=== PATIENT | female | born 1965 | race Caucasian/White ===

== ENCOUNTER 2016-03-13 23:04 | Emergency (ER) | payer OTHER ==
[2016-03-13 23:10] VITALS: TEMP 97.5
[2016-03-13] MEDS ORDERED: IPRATROPIUM-ALBUTEROL 3 ML NEB INHALATION STA (23:32)
[2016-03-13] MEDS ORDERED: SODIUM CHLORIDE 0.9% 1,000 ML IV STA (23:32)
[2016-03-13] MEDS ORDERED: methylPREDNISolone SOD SUCCI 125 MG/2 ML VIAL IV STA (23:32)
--- NOTE | 2016-03-13 23:35 | ED ---
General Adult HPI - General Chief complaint: Shortness of Breath Stated complaint: SOB Time Seen by Provider: 03/13/16 23:13 Source: patient, RN notes reviewed Mode of arrival: wheelchair Limitations: no limitations - History of Present Illness Initial comments: Patient is a 50-year-old female presenting to the emergency Department with cough and difficulty breathing. Symptoms have progressed over more than a week. Patient did have green sputum however cough is mostly dry at this time. Patient ran out of her medications. Patient states it hurts to cough all over her body. Patient states it hurts her chest and abdomen and back only from coughing. Patient has had some chills. Patient has had similar symptoms previously associated with COPD. - Related Data Home Medications Medication Instructions Recorded Confirmed Sertraline [Zoloft] 150 mg PO DAILY 07/29/13 03/13/16 Tiotropium 18 Mcg/Puff [Spiriva] 1 cap INHALATION RT-DAILY 09/27/15 03/13/16 ALPRAZolam [Xanax] 1 mg PO HS 03/13/16 03/13/16 Albuterol Inhaler [Ventolin Hfa 1 - 2 puff INHALATION RT-Q6H PRN 03/13/16 Inhaler] Levothyroxine Sodium [Synthroid] 50 mcg PO DAILY 03/13/16 03/13/16 Polyethylene Glycol 3350 [Miralax] 17 gm PO DAILY 03/13/16 03/13/16 oxyCODONE-APAP 10-325MG [Percocet 1 tab PO Q4H PRN 03/13/16 03/13/16 10-325 mg] rOPINIRole HCL [Requip] 1 mg PO HS 03/13/16 03/13/16 Previous Rx's Medication Instructions Recorded Azithromycin [Zithromax Z-pack] 250 mg PO DIRECTED #6 tab 03/14/16 predniSONE 20 mg PO BID #10 tab 03/14/16 Allergies Allergy/AdvReac Type Severity Reaction Status Date / Time ketorolac tromethamine Allergy Rash/Hives, Verified 03/13/16 23:45 [From Toradol] N/V tetanus and diphtheria Allergy Unknown Verified 03/13/16 23:45 toxoids Childhood [Tetanus&Diphtheria Toxoid] tetanus toxoid, adsorbed Allergy Unknown Verified 03/13/16 23:45 Childhood prochlorperazine edisylate AdvReac SEVERE Verified 03/13/16 23:45 [From Compazine] AGITATION prochlorperazine maleate AdvReac SEVERE Verified 03/13/16 23:45 [From Compazine] AGITATION Review of Systems ROS Statement: Those systems with pertinent positive or pertinent negative responses have been documented in the HPI. ROS Other: All systems not noted in ROS Statement are negative. Constitutional: Reports: chills Eyes: Denies: eye pain ENT: Reports: throat pain Respiratory: Reports: cough, dyspnea Cardiovascular: Reports: chest pain (Only with cough) Endocrine: Reports: fatigue Gastrointestinal: Reports: abdominal pain (Only with cough) Genitourinary: Denies: dysuria Musculoskeletal: Reports: back pain (With cough) Skin: Denies: rash Neurological: Denies: headache Past Medical History Past Medical History: Asthma, COPD, Thyroid Disorder Additional Past Medical History / Comment(s): Pt has had abdominal pain for the past few months and has been told it is appendicitis and kidney stones but not for certain. she had colonoscopy with polypectomy-benign on 07/21/15. Significant other who resides with her states she left feeling fine after colonoscopy but about 8 hrs later started with nausea and vomiting and then had increased anxiety, irradic behavior and unable to sit still. 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 They have been together for 8 yrs. She is normally independent. She uses no assistive device. She normally can drive. Significant other has noticed increased anxiety and irradic behavior the past couple days. He states pt is unable to sit still. Pt has hx of depression but denies any suicidal thoughts or plans. Significant other is concerned pt will sign out AMA or just leave. Smoking Status: Current every day smoker Past Alcohol Use History: Rare Additional Past Alcohol Use History / Comment(s): smoking: started 1986 1 ppd Past Drug Use History: None Reported - Past Family History Father Family Medical History: No Reported History Mother Family Medical History: Cancer, Diabetes Mellitus Additional Family Medical History / Comment(s): ORAL CA, HEART PROBLEMS Sister(s) Family Medical History: Fibromyalgia, Thyroid Disorder Additional Family Medical History / Comment(s): sx: to remove polyps & nodules from vocal cords..."possible cancer" General Exam Limitations: no limitations General appearance: alert, in no apparent distress Head exam: Present: atraumatic Eye exam: Present: normal appearance, PERRL ENT exam: Present: normal oropharynx Neck exam: Present: normal inspection Respiratory exam: Present: wheezes Cardiovascular Exam: Present: regular rate, normal rhythm GI/Abdominal exam: Present: soft. Absent: tenderness Extremities exam: Present: normal inspection. Absent: pedal edema, calf tenderness Back exam: Present: normal inspection Neurological exam: Present: alert Psychiatric exam: Present: normal affect, normal mood Skin exam: Absent: rash Course Vital Signs 03/13/16 03/13/16 03/13/16 23:05 23:33 23:34 Temperature 97.5 F L Pulse Rate 54 L 109 H Respiratory 24 22 Rate Blood Pressure 125/77 O2 Sat by Pulse 98 Oximetry 03/13/16 23:43 Temperature Pulse Rate 97 Respiratory Rate Blood Pressure O2 Sat by Pulse Oximetry EKG Findings - EKG Comments: EKG Findings:: Sinus tachycardia 102. [place] 162. QRS 80. QT 372. QTC 44. Normal axis. Low QRS voltage. Nonspecific T waves. Medical Decision Making - Medical Decision Making Patient reexamined and feels much better after one nebulizer treatment. Patient requests discharge home and states she has an appointment with her doctor tomorrow. Patient again requests pain medication for her cough. Patient states she normally takes pain medication twice daily. Lung sounds with rhonchi, overall significantly improved. - Lab Data Result diagrams: 03/13/16 23:40 03/13/16 23:40 Lab Results 03/13/16 03/13/16 Range/Units 23:40 23:40 WBC 7.4 (3.8-10.6) k/uL RBC 4.52 (3.80-5.40) m/uL Hgb 14.2 (11.4-16.0) gm/dL Hct 42.4 (34.0-46.0) % MCV 93.9 (80.0-100.0) fL MCH 31.5 (25.0-35.0) pg MCHC 33.5 (31.0-37.0) g/dL RDW 12.8 (11.5-15.5) % Plt Count 304 (150-450) k/uL Neutrophils % 57 % Lymphocytes % 36 % Monocytes % 5 % Eosinophils % 1 % Basophils % 1 % Neutrophils # 4.3 (1.3-7.7) k/uL Lymphocytes # 2.7 (1.0-4.8) k/uL Monocytes # 0.4 (0-1.0) k/uL Eosinophils # 0.1 (0-0.7) k/uL Basophils # 0.0 (0-0.2) k/uL Sodium 141 (137-145) mmol/L Potassium 5.4 H (3.5-5.1) mmol/L Chloride 102 (98-107) mmol/L Carbon Dioxide 25 (22-30) mmol/L Anion Gap 14 mmol/L BUN 13 (7-17) mg/dL Creatinine 0.80 (0.52-1.04) mg/dL Est GFR (MDRD) Af Amer >60 (>60 ml/min/1.73 sqM) Est GFR (MDRD) Non-Af >60 (>60 ml/min/1.73 sqM) Glucose 94 (74-99) mg/dL Calcium 9.8 (8.4-10.2) mg/dL Magnesium 1.9 (1.6-2.3) mg/dL Total Bilirubin 0.6 (0.2-1.3) mg/dL AST 42 H (14-36) U/L ALT 42 (9-52) U/L Alkaline Phosphatase 105 (38-126) U/L Total Protein 7.9 (6.3-8.2) g/dL Albumin 4.6 (3.5-5.0) g/dL - Radiology Data Interpreted by me: Chest x-ray shows no acute infiltrate. Disposition Clinical Impression: Asthmatic bronchitis Disposition: HOME SELF-CARE Condition: Stable Instructions: Asthma (ED), Acute Bronchitis (ED) Additional Instructions: Please follow-up with your doctor tomorrow as planned. Please also follow-up with your toxicologist in the next day or 2 for recheck. Return for fevers, difficulty breathing, worsening symptoms or other concerns. Prescriptions: Azithromycin [Zithromax Z-pack] 250 mg PO DIRECTED #6 tab predniSONE 20 mg PO BID #10 tab Referrals: Fermin Isaacs DO [Primary Care Provider] - 1-2 days
[2016-03-13 23:52] LABS: Basophils % (A) 1 %; CH 32.5; CHCM 34.8; Eosinophils # (A) 0.1 k/uL (0-0.7); Eosinophils % (A) 1 %; HCT 42.4 % (34.0-46.0); HDW 2.67; HGB 14.2 gm/dL (11.4-16.0); Luc # (Auto) 0.08; Luc % (Auto) 1; Lymphocytes # (A) 2.7 k/uL (1.0-4.8); Lymphocytes % (A) 36 %; MCH 31.5 pg (25.0-35.0); MCHC 33.5 g/dL (31.0-37.0); MCV 93.9 fL (80.0-100.0); Mean Platelet Volume 7.4; Monocytes # (A) 0.4 k/uL (0-1.0); Monocytes % (A) 5 %; Neutrophils # (A) 4.3 k/uL (1.3-7.7); Neutrophils % (A) 57 %; RBC 4.52 m/uL (3.80-5.40); RDW 12.8 % (11.5-15.5); WBC 7.4 k/uL (3.8-10.6); WBC (Perox) 7.77
[2016-03-14 00:03] LABS: Anion Gap 14 mmol/L; Calcium 9.8 mg/dL (8.4-10.2); Carbon Dioxide 25 mmol/L (22-30); Chloride 102 mmol/L (98-107); Glucose 94 mg/dL (74-99); Non-African American GFR(MDRD) >60 (>60 ml/min/1.73 sqM); Sodium 141 mmol/L (137-145); Total Bilirubin 0.6 mg/dL (0.2-1.3)
[2016-03-14 00:06] LABS: Blood Urea Nitrogen 13 mg/dL (7-17); Magnesium 1.9 mg/dL (1.6-2.3); Potassium 5.4 mmol/L (3.5-5.1); Total Protein 7.9 g/dL (6.3-8.2)
[2016-03-14 00:07] LABS: ALT 42 U/L (9-52); AST 42 U/L (14-36); Alkaline Phosphatase 105 U/L (38-126)
[2016-03-14] MEDS ORDERED: guaiFENesin-Coden 100-10MG/5ML 10 ML CUP PO ONE (00:18)
[2016-03-14] MEDS ORDERED: AZITHROMYCIN 500 MG TAB PO STA (00:19)
[2016-03-14 00:24] VITALS: BP 102/71; PULSE 96; RESP 18
--- NOTE | 2016-03-14 01:32 | XR ---
EXAMINATION TYPE: XR chest 2V DATE OF EXAM: 03/14/2016 12:01 AM COMPARISON: March 02, 2015. HISTORY: History of congestion shortness of breath and chest pain cough history of asthma. TECHNIQUE: Frontal and lateral views of the chest are obtained. FINDINGS: Chronic lung changes are suggested bilaterally. There is no focal air space opacity, pleural effusion, or pneumothorax seen. The cardiac silhouette size is within normal limits. The osseous structures are intact. IMPRESSION: No acute cardiopulmonary process. No significant interval change.
== END 2016-03-14 00:41 | disposition home or self-care (01) ==
LOC: EC 23:04
DX: J45.909 Unspecified asthma, uncomplicated (principal); J44.9 Chronic obstructive pulmonary disease, unspecified; E07.9 Disorder of thyroid, unspecified; F41.9 Anxiety disorder, unspecified; F32.9 Major depressive disorder, single episode, unspecified; F17.200 Nicotine dependence, unspecified, uncomplicated; Z88.7 Allergy status to serum and vaccine; Z88.8 Allergy status to other drugs, medicaments and biological substances; Z79.899 Other long term (current) drug therapy
CPT/HCPCS: 99285; 96374; 96361; 36415; 94640; 93005; 80053; 83735; 85025; 87040; 71020; J2930

== ENCOUNTER 2016-04-07 20:56 | Emergency (ER) | payer OTHER ==
[2016-04-07 21:05] VITALS: TEMP 97.7
[2016-04-07] MEDS ORDERED: SODIUM CHLORIDE 0.9% 500 ML IV STA (21:46)
[2016-04-07] MEDS ORDERED: HYDROmorphone 1 MG/ML 1 ML SYRINGE IVP STA (21:46)
[2016-04-07] MEDS ORDERED: SODIUM CHLORIDE 0.9% 1,000 ML IV STA (21:46)
--- NOTE | 2016-04-07 21:51 | ED ---
General Adult HPI - General Chief complaint: Abdominal Pain Stated complaint: ABD pain Time Seen by Provider: 04/07/16 21:34 Source: patient, family, EMS, RN notes reviewed, old records reviewed Mode of arrival: EMS Limitations: no limitations - History of Present Illness Initial comments: Chief complaint and history of present illness this is a 50-year-old female with acute onset of right lower quadrant pain. No nausea no vomiting. EMS gave her fluids, Zofran and fentanyl. Patient reports didn't help. Pain started acutely approximately one hour prior to coming emergency room. - Related Data Home Medications Medication Instructions Recorded Confirmed Sertraline [Zoloft] 150 mg PO DAILY 07/29/13 03/13/16 Tiotropium 18 Mcg/Puff [Spiriva] 1 cap INHALATION RT-DAILY 09/27/15 03/13/16 ALPRAZolam [Xanax] 1 mg PO HS 03/13/16 03/13/16 Albuterol Inhaler [Ventolin Hfa 1 - 2 puff INHALATION RT-Q6H PRN 03/13/16 Inhaler] Levothyroxine Sodium [Synthroid] 50 mcg PO DAILY 03/13/16 03/13/16 Polyethylene Glycol 3350 [Miralax] 17 gm PO DAILY 03/13/16 03/13/16 oxyCODONE-APAP 10-325MG [Percocet 1 tab PO Q4H PRN 03/13/16 03/13/16 10-325 mg] rOPINIRole HCL [Requip] 1 mg PO HS 03/13/16 03/13/16 Previous Rx's Medication Instructions Recorded Azithromycin [Zithromax Z-pack] 250 mg PO DIRECTED #6 tab 03/14/16 predniSONE 20 mg PO BID #10 tab 03/14/16 Allergies Allergy/AdvReac Type Severity Reaction Status Date / Time ketorolac tromethamine Allergy Rash/Hives, Verified 03/13/16 23:45 [From Toradol] N/V tetanus and diphtheria Allergy Unknown Verified 03/13/16 23:45 toxoids Childhood [Tetanus&Diphtheria Toxoid] tetanus toxoid, adsorbed Allergy Unknown Verified 03/13/16 23:45 Childhood prochlorperazine edisylate AdvReac SEVERE Verified 03/13/16 23:45 [From Compazine] AGITATION prochlorperazine maleate AdvReac SEVERE Verified 03/13/16 23:45 [From Compazine] AGITATION Review of Systems ROS Statement: Those systems with pertinent positive or pertinent negative responses have been documented in the HPI. Review of systems no complaint of visual acuity changes no headache no chest pain. She has discomfort to the right lower quadrant area. Reports her urine is dark she does have a past history of kidney stones. No flank pain. No nausea no vomiting. No change in bowel habits no change in color of stool. All systems are reviewed. Past medical problems kidney stones, asthma, COPD, hypothyroidism, chronic abdominal pain. Patient surgeries include partial hysterectomy, agitation right great toe after a lawnmower incident. Also colonoscopy. Family history mother has mouth cancer. Patient has ALLERGIES to ketorolac, tetanus, Compazine. ROS Other: All systems not noted in ROS Statement are negative. Past Medical History Past Medical History: Asthma, COPD, Thyroid Disorder Additional Past Medical History / Comment(s): Pt has had abdominal pain for the past few months and has been told it is appendicitis and kidney stones but not for certain. she had colonoscopy with polypectomy-benign on 07/21/15. Significant other who resides with her states she left feeling fine after colonoscopy but about 8 hrs later started with nausea and vomiting and then had increased anxiety, irradic behavior and unable to sit still. 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 They have been together for 8 yrs. She is normally independent. She uses no assistive device. She normally can drive. Significant other has noticed increased anxiety and irradic behavior the past couple days. He states pt is unable to sit still. Pt has hx of depression but denies any suicidal thoughts or plans. Significant other is concerned pt will sign out AMA or just leave. Smoking Status: Current every day smoker Past Alcohol Use History: Rare Additional Past Alcohol Use History / Comment(s): smoking: started 1985 1 ppd Past Drug Use History: None Reported - Past Family History Father Family Medical History: No Reported History Mother Family Medical History: Cancer, Diabetes Mellitus Additional Family Medical History / Comment(s): ORAL CA, HEART PROBLEMS Sister(s) Family Medical History: Fibromyalgia, Thyroid Disorder Additional Family Medical History / Comment(s): sx: to remove polyps & nodules from vocal cords..."possible cancer" General Exam - General Exam Comments Initial Comments: General: The patient is awake and alert, complaining of acute onset of right lower quadrant pain. Denying nausea. Vital signs temp 97.7 pulse 114 respiratory rate 22 pulse ox on percent room air blood pressure 86/55. Patient is not diaphoretic. Eye: Pupils are equal, round and reactive to light, extra-ocular movements are intact ; there is normal conjunctiva bilaterally. No signs of icterus. Ears, nose, mouth and throat: There are moist mucous membranes and no oral lesions. Patient is edentulous. Neck: The neck is supple, there is no tenderness . Cardiovascular: There is a regular rate and rhythm. No murmur, rub or gallop is appreciated. Respiratory: Lungs are clear to auscultation, respirations are non-labored, breath sounds are equal. No wheezes, stridor, rales, or rhonchi. Gastrointestinal: Soft, non-distended, points to the right lower quadrant area discomfort.. There is no rebound or guarding present. No CVA tenderness. Bowel sounds are unremarkable. No rash noted Back: There is no tenderness to palpation in the midline. There is no obvious deformity. No rashes noted. Musculoskeletal: Normal ROM, no tenderness, There is no pedal edema. There is no calf tenderness or swelling. Sensation intact. Neurological: No neuro deficits Skin: Skin is warm and dry and no rashes or lesions are noted. Psychiatric: Cooperative, appropriate mood & affect, normal judgment. History of anxiety and depression in the past. Limitations: no limitations Course Vital Signs 04/07/16 04/07/16 04/07/16 21:02 21:56 22:52 Temperature 97.7 F Pulse Rate 114 H 75 84 Respiratory 22 18 18 Rate Blood Pressure 86/55 97/53 107/55 O2 Sat by Pulse 100 97 99 Oximetry Medical Decision Making - Medical Decision Making Medical decision making; patient's white count 4.1 hemoglobin 13 hematocrit of 38, potassium 4.8 with a BUN of 15 crit and 0.9 and GFR greater than 60. Glucose 91. Amylase lipase within normal limits. X-ray of the abdomen was done and reviewed by radiologist his findings are there is no sign of intestinal obstruction or pneumoperitoneum. Fecal pattern is normal. There is no evidence of a mass. There are no pathologic calcifications over the kidneys. There is a mild lumbar dextroscoliosis. Lung bases are clear. Impression; nonacute abdomen. No change. As read by Dr. Serrano She was given a molasses and milk enema with excellent results. The patient's family now saying admission has been accomplished. Wants to go home, feeling better. - Lab Data Result diagrams: 04/07/16 21:14 04/07/16 21:14 Lab Results 04/07/16 04/07/16 04/07/16 Range/Units 21:14 21:14 21:14 WBC 4.1 (3.8-10.6) k/uL RBC 4.11 (3.80-5.40) m/uL Hgb 13.0 (11.4-16.0) gm/dL Hct 38.6 (34.0-46.0) % MCV 93.8 (80.0-100.0) fL MCH 31.6 (25.0-35.0) pg MCHC 33.7 (31.0-37.0) g/dL RDW 12.9 (11.5-15.5) % Plt Count 226 (150-450) k/uL Neutrophils % 50 % Lymphocytes % 43 % Monocytes % 4 % Eosinophils % 1 % Basophils % 1 % Neutrophils # 2.0 (1.3-7.7) k/uL Lymphocytes # 1.7 (1.0-4.8) k/uL Monocytes # 0.2 (0-1.0) k/uL Eosinophils # 0.0 (0-0.7) k/uL Basophils # 0.0 (0-0.2) k/uL Sodium 141 (137-145) mmol/L Potassium 4.8 (3.5-5.1) mmol/L Chloride 106 (98-107) mmol/L Carbon Dioxide 27 (22-30) mmol/L Anion Gap 8 mmol/L BUN 15 (7-17) mg/dL Creatinine 0.90 (0.52-1.04) mg/dL Est GFR (MDRD) Af Amer >60 (>60 ml/min/1.73 sqM) Est GFR (MDRD) Non-Af >60 (>60 ml/min/1.73 sqM) Glucose 94 (74-99) mg/dL Plasma Lactic Acid David 0.7 (0.7-2.0) mmol/L Calcium 9.0 (8.4-10.2) mg/dL Total Bilirubin 0.3 (0.2-1.3) mg/dL AST 17 (14-36) U/L ALT 24 (9-52) U/L Alkaline Phosphatase 91 (38-126) U/L Total Protein 6.7 (6.3-8.2) g/dL Albumin 3.9 (3.5-5.0) g/dL Amylase 63 (30-110) U/L Lipase 184 (23-300) U/L Urine Color Urine Appearance (Clear) Urine pH (5.0-8.0) Ur Specific [place] (1.001-1.035) Urine Protein (Negative) Urine Glucose (UA) (Negative) Urine Ketones (Negative) Urine Blood (Negative) Urine Nitrate (Negative) Urine Bilirubin (Negative) Urine Urobilinogen (<2.0) mg/dL Ur Leukocyte Esterase (Negative) 04/07/16 Range/Units 22:52 WBC (3.8-10.6) k/uL RBC (3.80-5.40) m/uL Hgb (11.4-16.0) gm/dL Hct (34.0-46.0) % MCV (80.0-100.0) fL MCH (25.0-35.0) pg MCHC (31.0-37.0) g/dL RDW (11.5-15.5) % Plt Count (150-450) k/uL Neutrophils % % Lymphocytes % % Monocytes % % Eosinophils % % Basophils % % Neutrophils # (1.3-7.7) k/uL Lymphocytes # (1.0-4.8) k/uL Monocytes # (0-1.0) k/uL Eosinophils # (0-0.7) k/uL Basophils # (0-0.2) k/uL Sodium (137-145) mmol/L Potassium (3.5-5.1) mmol/L Chloride (98-107) mmol/L Carbon Dioxide (22-30) mmol/L Anion Gap mmol/L BUN (7-17) mg/dL Creatinine (0.52-1.04) mg/dL Est GFR (MDRD) Af Amer (>60 ml/min/1.73 sqM) Est GFR (MDRD) Non-Af (>60 ml/min/1.73 sqM) Glucose (74-99) mg/dL Plasma Lactic Acid David (0.7-2.0) mmol/L Calcium (8.4-10.2) mg/dL Total Bilirubin (0.2-1.3) mg/dL AST (14-36) U/L ALT (9-52) U/L Alkaline Phosphatase (38-126) U/L Total Protein (6.3-8.2) g/dL Albumin (3.5-5.0) g/dL Amylase (30-110) U/L Lipase (23-300) U/L Urine Color Yellow Urine Appearance Clear (Clear) Urine pH 7.0 (5.0-8.0) Ur Specific [place] 1.015 (1.001-1.035) Urine Protein Negative (Negative) Urine Glucose (UA) Negative (Negative) Urine Ketones Negative (Negative) Urine Blood Negative (Negative) Urine Nitrate Negative (Negative) Urine Bilirubin Negative (Negative) Urine Urobilinogen <2.0 (<2.0) mg/dL Ur Leukocyte Esterase Negative (Negative) Disposition Clinical Impression: Constipation, Abdominal pain Disposition: HOME SELF-CARE Condition: Good Instructions: Abdominal Pain (ED), Constipation (ED) Additional Instructions: Stay well-hydrated. Use laxative as needed. Follow-up family physician. Time of Disposition: 23:55
[2016-04-07 21:57] VITALS: RESP 18
[2016-04-07 22:08] LABS: Basophils % (A) 1 %; CH 32.7; Eosinophils % (A) 1 %; HCT 38.6 % (34.0-46.0); Luc # (Auto) 0.08; Luc % (Auto) 2; Lymphocytes # (A) 1.7 k/uL (1.0-4.8); Lymphocytes % (A) 43 %; MCH 31.6 pg (25.0-35.0); MCHC 33.7 g/dL (31.0-37.0); MCV 93.8 fL (80.0-100.0); Mean Platelet Volume 7.6; Monocytes # (A) 0.2 k/uL (0-1.0); Monocytes % (A) 4 %; Neutrophils % (A) 50 %; RBC 4.11 m/uL (3.80-5.40); RDW 12.9 % (11.5-15.5); WBC 4.1 k/uL (3.8-10.6); WBC (Perox) 3.97
[2016-04-07 22:17] LABS: ALT 24 U/L (9-52); AST 17 U/L (14-36); Alkaline Phosphatase 91 U/L (38-126); Amylase 63 U/L (30-110); Anion Gap 8 mmol/L; Blood Urea Nitrogen 15 mg/dL (7-17); Carbon Dioxide 27 mmol/L (22-30); Chloride 106 mmol/L (98-107); Glucose 94 mg/dL (74-99); Non-African American GFR(MDRD) >60 (>60 ml/min/1.73 sqM); Potassium 4.8 mmol/L (3.5-5.1); Sodium 141 mmol/L (137-145); Total Bilirubin 0.3 mg/dL (0.2-1.3); Total Protein 6.7 g/dL (6.3-8.2)
--- NOTE | 2016-04-07 22:25 | XR ---
EXAMINATION TYPE: XR abdomen 2V DATE OF EXAM: 04/07/2016 10:09 PM COMPARISON: 07/14/2015 HISTORY: Right upper quadrant pain TECHNIQUE: 4 views FINDINGS: There is no sign of intestinal obstruction or pneumoperitoneum. Fecal pattern is normal. Th ere is no evidence of a mass. There are no pathologic calcifications over the kidneys. There is a mil d lumbar dextroscoliosis. Lung bases are clear. IMPRESSION: Nonacute abdomen. No change.
[2016-04-07 22:53] VITALS: PULSE 84
[2016-04-07 23:06] LABS: Appearance,Urine Clear (Clear); Bilirubin,Urine Negative (Negative); Glucose,Urine (UA) Negative (Negative); Ketones,Urine Negative (Negative); Leukocyte Esterase,Urine Negative (Negative); Nitrite,Urine Negative (Negative); Protein,Urine Negative (Negative); Specific Gravity,Urine 1.015 (1.001-1.035); UA Billing (MACRO vs. MICRO) CHEM; Urobilinogen,Urine <2.0 mg/dL (<2.0)
[2016-04-08 00:14] VITALS: BP 100/70
== END 2016-04-08 00:14 | disposition home or self-care (01) ==
LOC: EC 20:56
DX: K59.00 Constipation, unspecified (principal); J44.9 Chronic obstructive pulmonary disease, unspecified; J45.909 Unspecified asthma, uncomplicated; G25.81 Restless legs syndrome; E03.9 Hypothyroidism, unspecified; F41.9 Anxiety disorder, unspecified; F32.9 Major depressive disorder, single episode, unspecified; F17.200 Nicotine dependence, unspecified, uncomplicated; Z87.442 Personal history of urinary calculi; Z79.899 Other long term (current) drug therapy; Z88.5 Allergy status to narcotic agent; Z88.7 Allergy status to serum and vaccine
CPT/HCPCS: 99284; 96374; 96361 ×2; 36415; 80053; 82150; 83605; 83690; 85025; 81003; 87086; 74020; J1170

== ENCOUNTER → 2016-09-30 | Outpatient (CLI) | payer OTHER ==
--- NOTE | 2016-09-30 19:40 | MR ---
EXAMINATION TYPE: MR lumbar spine wo con DATE OF EXAM: 09/30/2016 COMPARISON: CT abdomen and pelvis September 27, 2015 HISTORY: Back Pain since 2004, Pain and Numbness down both Legs TECHNIQUE: Multiplanar, multisequence imaging of the lumbar spine is performed without IV contrast. FINDINGS: Sagittal images of the lumbar spine show vertebral body heights to remain satisfactory. The re is slight dextroconvex scoliotic curvature centered near thoracolumbar junction redemonstrated. Mu ltilevel disc desiccation is noted. There is moderate to advanced disc space narrowing with vacuum di sc phenomenon L4-L5 and L5-S1 levels redemonstrated. Small posterior disc herniation L5-S1 level as s een on sagittal images. The conus medullaris is normal in position and signal ending at mid L1 level. Mild spurring and endplate changes in the lower lumbar spine is present. Axial images show the T12-L1 level to appear within normal limits. Axial images at L1-L2 level show mild broad disc bulge mildly effacing anterior thecal sac, bilateral neural foramina are patent. Axial images at L2-L3 level are felt within normal limits. Axial images at L3-L4 level show mild facet degenerative changes bilaterally but spinal canal is pres erved and bilateral neural foramina are patent. Axial images at L4-L5 level show mild to moderate facet degenerative changes bilaterally. There is br oad-based posterior disc protrusion. There is mild to moderate right and mild left-sided anterior inf erior neural foraminal narrowing noted. Spinal canal is preserved. Axial images at L5-S1 level show mild to moderate facet degenerative changes bilaterally. There is ce ntral disc protrusion seen. Spinal canal is preserved. There is mild to moderate bilateral anterior i nferior neural foraminal narrowing noted. IMPRESSION: Slight scoliotic curvature with multilevel degenerative changes redemonstrated most prono unced in lower lumbar levels with further details noted as discussed in body of report.
== END | disposition home or self-care (01) ==
LOC: RADMRIMAIN 18:30
PROVIDERS: ATTEND Internal Medicine
DX: M47.817 Spondylosis without myelopathy or radiculopathy, lumbosacral region (principal); M41.86 Other forms of scoliosis, lumbar region
CPT/HCPCS: 72148

== ENCOUNTER → 2016-11-19 | Outpatient (CLI) | payer OTHER ==
--- NOTE | 2016-11-19 15:05 | P.HPIM ---
History of Present Illness H&P Date: 11/19/16 Chief Complaint: low back pain and leg pain This is a 51-year-old patient referred by Dr. Isaacs for chronic pain in low back with numbness/tingling in both legs. Patient has been taking medications from primary care physician including [place] and Xanax medications with some relief; patient has a history of cocaine use and states that she has been " clean 7 years". She was previously taking opioids but states that she does not want any more. Patient denies adverse drug effects from medications. Patient also denies new-onset weakness, bowel/bladder incontinence, or any other signs or symptoms of cauda equina syndrome. There are no signs of acute intoxication, and no indications of medication diversion or overuse. Patient notes that pain worsens significantly with bending over and improves with standing up straight, ice, rest, and medication. Patient has used several types of medications for pain, including NSAIDS, OPIOIDS, and BENZODIAZEPINES. Patient HAS NOT had surgery. Patient HAS NOT had injections previously. Patient HAS NOT had physical therapy recently. In addition to above, 13-point review of systems is also negative for chest pain , shortness of breath, changes in vision, changes in hearing, new onset weakness , abdominal pain, diarrhea, extreme fatigue, malaise, fever, skin changes, homicidal or suicidal ideation, or bowel or bladder incontinence. Vital Signs: Reviewed in EMR Gen: WDWN, AAOx3, NAD HEENT: NCAT, EOMI, hearing grossly normal Pulm: resp unlabored Abd: soft, NT, ND Neck: supple, trachea midline ROM in flexion lumbar spine: reduced ROM in extension lumbar spine: reduced Lumbar paravertebral tenderness: + Facet loading: + L side SI joint tenderness: + L side, neg R side Tristan's test: + L side Straight leg raise: + bilateral Neuro: CN II-XII grossly intact, muscle strength lower extremities PRESERVED Past Medical History Past Medical History: Asthma, COPD, Thyroid Disorder Additional Past Medical History / Comment(s): Pt has had abdominal pain for the past few months and has been told it is appendicitis and kidney stones but not for certain. she had colonoscopy with polypectomy-benign on 07/21/15. Significant other who resides with her states she left feeling fine after colonoscopy but about 8 hrs later started with nausea and vomiting and then had increased anxiety, irradic behavior and unable to sit still. 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 They have been together for 8 yrs. She is normally independent. She uses no assistive device. She normally can drive. Significant other has noticed increased anxiety and irradic behavior the past couple days. He states pt is unable to sit still. Pt has hx of depression but denies any suicidal thoughts or plans. Significant other is concerned pt will sign out AMA or just leave. Smoking Status: Current every day smoker Past Alcohol Use History: Rare Additional Past Alcohol Use History / Comment(s): smoking: started 1985 03 ppd Past Drug Use History: None Reported - Past Family History Father Family Medical History: No Reported History Mother Family Medical History: Cancer, Diabetes Mellitus Additional Family Medical History / Comment(s): ORAL CA, HEART PROBLEMS Sister(s) Family Medical History: Fibromyalgia, Thyroid Disorder Additional Family Medical History / Comment(s): sx: to remove polyps & nodules from vocal cords..."possible cancer" Medications and Allergies Home Medications Medication Instructions Recorded Confirmed Type Sertraline [Zoloft] 150 mg PO DAILY 07/29/13 03/13/16 History Tiotropium 18 Mcg/Puff [Spiriva] 1 cap INHALATION RT-DAILY 09/27/15 03/13/16 History ALPRAZolam [Xanax] 1 mg PO HS 03/13/16 03/13/16 History Albuterol Inhaler [Ventolin Hfa 1 - 2 puff INHALATION RT-Q6H PRN 03/13/16 History Inhaler] Levothyroxine Sodium [Synthroid] 50 mcg PO DAILY 03/13/16 03/13/16 History Polyethylene Glycol 3350 [Miralax] 17 gm PO DAILY 03/13/16 03/13/16 History oxyCODONE-APAP 10-325MG [Percocet 1 tab PO Q4H PRN 03/13/16 03/13/16 History 10-325 mg] rOPINIRole HCL [Requip] 1 mg PO HS 03/13/16 03/13/16 History Azithromycin [Zithromax Z-pack] 250 mg PO DIRECTED #6 tab 03/14/16 Rx predniSONE 20 mg PO BID #10 tab 03/14/16 Rx Allergies Allergy/AdvReac Type Severity Reaction Status Date / Time ketorolac tromethamine Allergy Rash/Hives, Verified 03/13/16 23:45 [From Toradol] N/V tetanus and diphtheria Allergy Unknown Verified 03/13/16 23:45 toxoids Childhood [Tetanus&Diphtheria Toxoid] tetanus toxoid, adsorbed Allergy Unknown Verified 03/13/16 23:45 Childhood prochlorperazine edisylate AdvReac SEVERE Verified 03/13/16 23:45 [From Compazine] AGITATION prochlorperazine maleate AdvReac SEVERE Verified 03/13/16 23:45 [From Compazine] AGITATION Results Comments: MRI lumbar spine dated 09/30/2016 demonstrates mild facet degenerative changes bilaterally at the L3-L4 level with patent bilateral neural foramina. At the L4 -L5 level there are mild to moderate facet degenerative changes bilaterally with a broad-based posterior disc protrusion and mild to moderate right and mild left-sided inferior neural foraminal narrowing. At the L5-S1 level there are mild to moderate facet degenerative changes bilaterally with central disc protrusion seen. There is mild to moderate bilateral inferior neural foraminal narrowing noted. Assessment and Plan (1) Lumbar spondylosis Status: Chronic (2) Chronic pain syndrome Status: Chronic (3) History of cocaine abuse Status: Resolved Plan: 1. Explanation: Opioid and psychological risk scores were reviewed. Diagnoses , prognoses, and multiple treatment options including but not limited to physical therapy, interventional therapies, adjuvant medical therapies, narcotic medication therapies, and surgery were discussed with the patient and all questions were answered to the patient's satisfaction. 2. Opioid agreement: no opioids prescribed today 3. Counseling: The patient was counseled extensively on SMOKING CESSATION, BODY MASS INDEX, EXERCISE. Specifically, the patient was instructed regarding the importance of smoking cessation, weight control, and exercise in the context of both chronic pain and overall health. 4. Procedures: will discuss FRANKYIs next visit 5. Consultations: physical therapy, dietetics 6. Investigations: none 7. Medications: none prescribed 8. Disposition: f/u for re-eval in 8 weeks after physical therapy to discuss LESIs if needed. Patient told to reduce to 17 cigarettes per day by next visit. PQRS measures: 1-Patient's medications are documented in the chart. 2-Tobacco use is positive, counseling given 3-Patient has not had a pneumococcal vaccine. 4-Advanced care planning discussed, patient unable to give. 5-Opioid contract signed with the patient. 6-Pain positive, follow-up visit or procedure scheduled 7-Patient's blood pressure measured and documented, and patient will follow up with the primary care due to hypertension. 8-Patient's weight was measured, and body mass index ABOVE the normal limits, and counseling was done. Patient instructed to follow up with PCP. 9-Patient WAS NOT identified as an unhealthy alcohol user. Time with Patient: Greater than 30
== END | disposition home or self-care (01) ==
LOC: PNWHC3 14:05
PROVIDERS: ATTEND Anesthesiology
DX: M47.816 Spondylosis without myelopathy or radiculopathy, lumbar region (principal); G89.4 Chronic pain syndrome; J44.9 Chronic obstructive pulmonary disease, unspecified; F17.200 Nicotine dependence, unspecified, uncomplicated; Z86.59 Personal history of other mental and behavioral disorders; Z79.899 Other long term (current) drug therapy; Z79.51 Long term (current) use of inhaled steroids; Z88.6 Allergy status to analgesic agent; Z88.7 Allergy status to serum and vaccine; Z88.8 Allergy status to other drugs, medicaments and biological substances
CPT/HCPCS: 99211

== ENCOUNTER 2016-12-15 16:45 | Emergency (ER) | payer OTHER ==
[2016-12-15 16:59] VITALS: RESP 18
[2016-12-15] MEDS ORDERED: HYDROmorphone 1 MG/ML 1 ML SYRINGE IM STA (17:13)
[2016-12-15] MEDS ORDERED: ORPHENADRINE 30 MG/ML 2 ML VIAL IM STA (17:13)
--- NOTE | 2016-12-15 17:19 | ED ---
Back Pain HPI - General Chief Complaint: Back Pain/Injury Stated Complaint: Back Pain Time Seen by Provider: 12/15/16 17:01 Source: patient, RN notes reviewed, old records reviewed Limitations: no limitations - History of Present Illness Initial Comments: Patient is a 51 year old female with CC of back pain after a fall from her one porch step last night. Patient reports that she missed the step and tabatha her back. She denies falling directly on her tailbone. Patient states that she is currently under a pain contract with Dr. Millard. She reports that she takes Percocet. She reports that she took 2 of them but is not helping with her pain. Patient states that she has a known history of chronic back pain. She has an MRI which she brought the report with her stating that she's had multiple degenerative disc disease. Patient denies any saddle anesthesias. She reports that she has had no problems with urination or bowel movements. She states that she has no blood in her urine or dysuria, denies any abdominal pain. She denies any pain radiating down her legs. She reports it only stays in her lumbar and lower thoracic spine. - Related Data Home Medications Medication Instructions Recorded Confirmed Sertraline [Zoloft] 150 mg PO DAILY 07/29/13 12/15/16 Tiotropium 18 Mcg/Puff [Spiriva] 1 cap INHALATION RT-DAILY 09/27/15 12/15/16 Polyethylene Glycol 3350 [Miralax] 17 gm PO DAILY 03/13/16 12/15/16 ALPRAZolam [Xanax] 0.25 mg PO HS 12/15/16 12/15/16 Albuterol Nebulized [Ventolin 2.5 mg INHALATION RT-QID PRN 12/15/16 12/15/16 Nebulized] Levothyroxine Sodium [Synthroid] 25 mcg PO DAILY 12/15/16 12/15/16 oxyCODONE-APAP 5-325MG [Percocet 1 tab PO DAILY PRN 12/15/16 12/15/16 5-325 mg] rOPINIRole HCL [Requip] 3 mg PO HS 12/15/16 12/15/16 Previous Rx's Medication Instructions Recorded Cyclobenzaprine [Flexeril] 10 mg PO TID #15 tab 12/15/16 Allergies Allergy/AdvReac Type Severity Reaction Status Date / Time ketorolac tromethamine Allergy Rash/Hives, Verified 12/15/16 17:17 [From Toradol] N/V tetanus and diphtheria Allergy Unknown Verified 12/15/16 17:17 toxoids Childhood [Tetanus&Diphtheria Toxoid] tetanus toxoid, adsorbed Allergy Unknown Verified 12/15/16 17:17 Childhood prochlorperazine edisylate AdvReac SEVERE Verified 12/15/16 17:17 [From Compazine] AGITATION prochlorperazine maleate AdvReac SEVERE Verified 12/15/16 17:17 [From Compazine] AGITATION Review of Systems ROS Statement: Those systems with pertinent positive or pertinent negative responses have been documented in the HPI. ROS Other: All systems not noted in ROS Statement are negative. Past Medical History Past Medical History: Asthma, COPD, Thyroid Disorder Additional Past Medical History / Comment(s): Pt has had abdominal pain for the past few months and has been told it is appendicitis and kidney stones but not for certain. she had colonoscopy with polypectomy-benign on 07/21/15. Significant other who resides with her states she left feeling fine after colonoscopy but about 8 hrs later started with nausea and vomiting and then had increased anxiety, irradic behavior and unable to sit still. 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-MULT SURGERIES; adhesions from hysterectomy removed Past Anesthesia/Blood Transfusion Reactions: No Reported Reaction Past Psychological History: Anxiety, Bipolar, Depression Smoking Status: Current every day smoker Past Alcohol Use History: None Reported Past Drug Use History: None Reported - Past Family History Father Family Medical History: No Reported History Mother Family Medical History: Cancer, Diabetes Mellitus Additional Family Medical History / Comment(s): ORAL CA, HEART PROBLEMS Sister(s) Family Medical History: Fibromyalgia, Thyroid Disorder Additional Family Medical History / Comment(s): sx: to remove polyps & nodules from vocal cords..."possible cancer" General Exam - General Exam Comments Initial Comments: Pleasant 51 year old female, no distress. Limitations: no limitations General appearance: alert, in no apparent distress Head exam: Present: atraumatic, normocephalic, normal inspection Eye exam: Present: normal appearance, PERRL, EOMI. Absent: scleral icterus, conjunctival injection, periorbital swelling ENT exam: Present: normal exam, mucous membranes moist Neck exam: Present: normal inspection. Absent: tenderness, meningismus, lymphadenopathy Respiratory exam: Present: normal lung sounds bilaterally. Absent: respiratory distress, wheezes, rales, rhonchi, stridor Cardiovascular Exam: Present: regular rate, normal rhythm, normal heart sounds. Absent: systolic murmur, diastolic murmur, rubs, gallop, clicks GI/Abdominal exam: Present: soft, normal bowel sounds. Absent: distended, tenderness, guarding, rebound, rigid Extremities exam: Present: normal inspection, full ROM, normal capillary refill. Absent: tenderness, pedal edema, joint swelling, calf tenderness Back exam: Present: normal inspection, vertebral tenderness (lumbar vertebral tenderness ) Neurological exam: Present: alert, oriented X3, CN II-XII intact Psychiatric exam: Present: normal affect, normal mood Skin exam: Present: warm, dry, intact, normal color. Absent: rash Course Vital Signs 12/15/16 16:55 Temperature 97.9 F Pulse Rate 95 Respiratory 18 Rate Blood Pressure 103/58 O2 Sat by Pulse 94 L Oximetry Medical Decision Making - Medical Decision Making Is a 51-year-old female with acute exacerbation of chronic back pain after she tabatha her back after she missed a step and fell. Patient has some lumbar spinal tenderness. No saddle anesthesias. Full range of motion noted and legs. Patient is neurovascularly intact. Patient received lumbar spine x-rays and was given IM pain medication. As patient is a already on a pain contract discussed that I will not write her for any further pain medicine. Her spine x- rays were obtained. There is no significant findings including fracture. There is some spondylosis of the lumbar spine specifically L4-L5 and L5-S1. Patient received pain medicines and is feeling better at this time. Again I will write the patient only for also relaxers that she is on a pain contract. She does have a primary care provider per appointment tomorrow. Patient agrees to treatment plan will comply. Return parameters were discussed. - Radiology Data Radiology results: report reviewed X-ray shows a normal thoracic spine exam. X-ray of lumbar spine shows spondylosis and lumbar spine. No evidence of fracture. Narrowing of disc spaces L4-L5 and L5-S1. Disposition Clinical Impression: Acute exacerbation of chronic low back pain, Lumbar paraspinal muscle spasm Disposition: HOME SELF-CARE Condition: Good Instructions: Acute Low Back Pain (ED) Additional Instructions: Patient advised to follow-up with her primary care tomorrow. Patient should return if there is any signs of loss of bowel or bladder control. Return to emergency department if any alarming signs or symptoms occur. Prescriptions: Cyclobenzaprine [Flexeril] 10 mg PO TID #15 tab Referrals: Lyle Islas MD [Primary Care Provider] - 1-2 days Time of Disposition: 18:20
--- NOTE | 2016-12-15 18:09 | XR ---
EXAMINATION TYPE: XR lumbar spine 2 or 3V DATE OF EXAM: 12/15/2016 COMPARISON: NONE HISTORY: Back pain TECHNIQUE: 3 views FINDINGS: Vertebra have fairly normal alignment. There is narrowing of disc spaces at L4-5 and L5-S1 with spurring of the endplates. Posterior elements are intact. Sacroiliac joints appear normal. IMPRESSION: Spondylosis in the lower lumbar spine. No fracture.
--- NOTE | 2016-12-15 18:10 | XR ---
EXAMINATION TYPE: XR thoracic spine 2V DATE OF EXAM: 12/15/2016 COMPARISON: NONE HISTORY: Back pain TECHNIQUE: 3 views FINDINGS: Vertebra have normal spacing and alignment. Posterior elements are intact. There is no para spinal mass. There is no compression fracture. IMPRESSION: Normal thoracic spine exam.
[2016-12-15 18:46] VITALS: BP 137/68; PULSE 92; TEMP 97.7
== END 2016-12-15 18:30 | disposition home or self-care (01) ==
LOC: EC 16:45
DX: M62.830 Muscle spasm of back (principal); G89.29 Other chronic pain; M47.816 Spondylosis without myelopathy or radiculopathy, lumbar region; J44.9 Chronic obstructive pulmonary disease, unspecified; J45.909 Unspecified asthma, uncomplicated; E03.9 Hypothyroidism, unspecified; F41.9 Anxiety disorder, unspecified; F31.9 Bipolar disorder, unspecified; F17.200 Nicotine dependence, unspecified, uncomplicated; Z79.899 Other long term (current) drug therapy; Z88.6 Allergy status to analgesic agent; Z88.7 Allergy status to serum and vaccine; Z88.8 Allergy status to other drugs, medicaments and biological substances; W10.8XXA Fall (on) (from) other stairs and steps, initial encounter
CPT/HCPCS: 99284 ×2; 96372 ×3; 72070; 72100; J2360; J1170

== ENCOUNTER 2017-03-19 10:52 | Emergency (ER) | payer OTHER ==
[2017-03-19] MEDS ORDERED: IBUPROFEN 800 MG TAB PO STA (11:16)
--- NOTE | 2017-03-19 11:23 | ED ---
General Adult HPI - General Chief complaint: Fall Stated complaint: SLIP ON ICE, ABDOMINAL PAIN Time Seen by Provider: 03/19/17 11:02 Source: patient, RN notes reviewed, old records reviewed Mode of arrival: ambulatory Limitations: no limitations - History of Present Illness Initial comments: 51-year-old female presents for evaluation of left lower abdominal pain and pain with ambulation status post slip and fall. Patient reports yesterday afternoon she tripped on the ice, fell blood cultures herself before hitting the ground. She had initial mild lower abdominal pain and pain worse with sitting up. This is worsened over the past 12 hours. Patient denies dysuria or hematuria. Denies any change in her bowels. No nausea vomiting. No upper abdominal pain. No chest pain or shortness of breath. Patient did not strike any part of her body on the ground. She has no extremity pain. No head or neck pain. No loss consciousness. Patient has pain only in her left lower quadrant which is worse with sitting up, worse with ambulation. - Related Data Home Medications Medication Instructions Recorded Confirmed Polyethylene Glycol 3350 [Miralax] 17 gm PO DAILY 03/13/16 03/19/17 Albuterol Nebulized [Ventolin 2.5 mg INHALATION RT-QID PRN 12/15/16 03/19/17 Nebulized] Levothyroxine Sodium [Synthroid] 25 mcg PO DAILY 12/15/16 03/19/17 Hydrocodone/Acetaminophen [[place] 1 tab PO QID 03/19/17 03/19/17 7.5-325] Previous Rx's Medication Instructions Recorded Divalproex ER [Depakote ER] 1,000 mg PO HS #60 tab.er.24h 02/10/17 QUEtiapine [SEROquel] 50 mg PO HS #30 tab 02/10/17 rOPINIRole HCL [Requip] 1 mg PO HS tab 02/10/17 Ibuprofen [Motrin] 600 mg PO Q8HR PRN #24 tab 03/19/17 Allergies Allergy/AdvReac Type Severity Reaction Status Date / Time ketorolac tromethamine Allergy Rash/Hives, Verified 03/19/17 11:22 [From Toradol] N/V tetanus and diphtheria Allergy Unknown Verified 03/19/17 11:22 toxoids Childhood [Tetanus&Diphtheria Toxoid] tetanus toxoid, adsorbed Allergy Unknown Verified 03/19/17 11:22 Childhood prochlorperazine edisylate AdvReac SEVERE Verified 03/19/17 11:22 [From Compazine] AGITATION prochlorperazine maleate AdvReac SEVERE Verified 03/19/17 11:22 [From Compazine] AGITATION Review of Systems ROS Statement: Those systems with pertinent positive or pertinent negative responses have been documented in the HPI. ROS Other: All systems not noted in ROS Statement are negative. 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-MULT SURGERIES; adhesions from hysterectomy removed Past Anesthesia/Blood Transfusion Reactions: No Reported Reaction Past Psychological History: Anxiety, Bipolar, Depression Smoking Status: Current every day smoker Past Alcohol Use History: None Reported Past Drug Use History: None Reported - Past Family History Father Family Medical History: No Reported History Mother Family Medical History: Cancer, Diabetes Mellitus Additional Family Medical History / Comment(s): ORAL CA, HEART PROBLEMS Sister(s) Family Medical History: Fibromyalgia, Thyroid Disorder Additional Family Medical History / Comment(s): sx: to remove polyps & nodules from vocal cords..."possible cancer" General Exam Limitations: no limitations General appearance: alert, in no apparent distress Head exam: Present: atraumatic, normocephalic Eye exam: Present: normal appearance, PERRL ENT exam: Present: normal exam Neck exam: Present: normal inspection. Absent: tenderness, meningismus Respiratory exam: Present: normal lung sounds bilaterally. Absent: respiratory distress, wheezes Cardiovascular Exam: Present: regular rate, normal rhythm GI/Abdominal exam: Present: soft, tenderness (mild tenderness in the left lower quadrant, pain significantly worse with sitting forward, consistent with abdominal wall strain), normal bowel sounds. Absent: distended Extremities exam: Present: normal inspection, full ROM, normal capillary refill , calf tenderness, other (abdominal pain with flexion of the left lower extremity at the hip. distal pulses intact. ). Absent: tenderness, pedal edema Back exam: Present: normal inspection. Absent: full ROM, tenderness Neurological exam: Present: alert, oriented X3, CN II-XII intact. Absent: motor sensory deficit Psychiatric exam: Present: normal affect, normal mood Skin exam: Present: warm, dry, intact Course Vital Signs 03/19/17 10:59 Temperature 98.1 F Pulse Rate 90 Respiratory 20 Rate Blood Pressure 114/66 O2 Sat by Pulse 98 Oximetry Medical Decision Making - Medical Decision Making 51-year-old female with left lower quadrant abdominal pain status post fall. Pain consistent with abdominal wall muscle strain, patient does have some mild pain in her lower abdomen with internal and external rotation of the hip. Lower extremities are normal no injury. No external signs trauma. No head or neck trauma. X-rays of the hip are obtained, these are negative for any acute bony abnormality, no fracture or dislocation. Patient will rest, she will gently stretch her abdominal wall muscles. Take Motrin as an anti-inflammatory. Disposition Clinical Impression: Abdominal wall strain Disposition: HOME SELF-CARE Condition: Good Instructions: Muscle Strain (ED), Core Strengthening Exercises (ED) Prescriptions: Ibuprofen [Motrin] 600 mg PO Q8HR PRN #24 tab PRN Reason: Pain Referrals: Esvin Valentin MD [Primary Care Provider] - 1-2 days Time of Disposition: 11:48
--- NOTE | 2017-03-19 11:38 | XR ---
EXAMINATION TYPE: XR Hip Complete LT DATE OF EXAM: 03/19/2017 CLINICAL HISTORY: pain TECHNIQUE: AP and frogleg views of the left hip are obtained. COMPARISON: None. FINDINGS: There is no acute fracture/dislocation evident. The joint space appears within normal li mits. The overlying soft tissue appears unremarkable. IMPRESSION: 1. There is no acute fracture or dislocation.ICD 10 NO FRACTURE, INITIAL EVALUATION
[2017-03-19 12:18] VITALS: BP 118/62; PULSE 79; RESP 16; TEMP 97.6
== END 2017-03-19 12:17 | disposition home or self-care (01) ==
LOC: EC 10:52
DX: S39.011A Strain of muscle, fascia and tendon of abdomen, initial encounter (principal); E03.9 Hypothyroidism, unspecified; F17.200 Nicotine dependence, unspecified, uncomplicated; Z79.891 Long term (current) use of opiate analgesic; Z79.899 Other long term (current) drug therapy; Z88.7 Allergy status to serum and vaccine; Z88.6 Allergy status to analgesic agent; Z88.8 Allergy status to other drugs, medicaments and biological substances; W00.0XXA Fall on same level due to ice and snow, initial encounter; Y92.009 Unspecified place in unspecified non-institutional (private) residence as the place of occurrence of the external cause
CPT/HCPCS: 73502; 99284

== ENCOUNTER 2018-01-13 10:19 | Emergency (ER) | payer OTHER ==
[2018-01-13 10:23] VITALS: BP 96/64; TEMP 98.3
[2018-01-13] MEDS ORDERED: methylPREDNISolone SOD SUCCI 125 MG/2 ML VIAL IV STA (10:46)
[2018-01-13] MEDS ORDERED: guaiFENesin SYRUP 100MG/5ML 200 MG/10 ML CUP PO STA (10:46)
[2018-01-13] MEDS ORDERED: IPRATROPIUM-ALBUTEROL 3 ML NEB INHALATION STA (10:46)
--- NOTE | 2018-01-13 10:55 | XR ---
EXAMINATION TYPE: XR chest 2V DATE OF EXAM: 01/13/2018 COMPARISON: 03/14/2016 INDICATION: Cough, pain TECHNIQUE: Frontal and lateral views of the chest are obtained. FINDINGS: The heart size is normal. The pulmonary vasculature is normal. Some mild left perihilar infiltrate is present. Lungs are otherwise clear. IMPRESSION: 1. Mild left perihilar infiltrate. Correlate for developing pneumonia and bronchitis. Viral pneumonia could be considered.
[2018-01-13 11:00] VITALS: RESP 16
[2018-01-13] MEDS ORDERED: methylPREDNISolone SOD SUCCI 125 MG/2 ML VIAL IM ONE (11:02)
[2018-01-13] MEDS ORDERED: LEVOFLOXACIN 500 MG TAB PO STA (11:10)
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
[2018-01-13 11:36] VITALS: PULSE 84
== END 2018-01-13 11:35 | disposition home or self-care (01) ==
LOC: EC 10:19
DX: J44.0 Chronic obstructive pulmonary disease with (acute) lower respiratory infection (principal); J18.9 Pneumonia, unspecified organism; E03.9 Hypothyroidism, unspecified; M54.9 Dorsalgia, unspecified; Z99.89 Dependence on other enabling machines and devices; F31.9 Bipolar disorder, unspecified; F41.9 Anxiety disorder, unspecified; F17.200 Nicotine dependence, unspecified, uncomplicated; Z79.891 Long term (current) use of opiate analgesic; Z79.899 Other long term (current) drug therapy; Z88.6 Allergy status to analgesic agent; Z88.7 Allergy status to serum and vaccine; Z88.8 Allergy status to other drugs, medicaments and biological substances; Z53.8 Procedure and treatment not carried out for other reasons
CPT/HCPCS: 94640; 71046; 99284; 96372; J2930

== ENCOUNTER 2021-01-04 15:29 | Emergency (ER) | payer OTHER ==
[2021-01-04 15:36] VITALS: TEMP 97.8
[2021-01-04] MEDS ORDERED: ACETAMINOPHEN TAB 500 MG TAB PO STA (16:19)
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
--- NOTE | 2021-01-04 16:39 | XR ---
EXAMINATION TYPE: XR finger RT DATE OF EXAM: 01/04/2021 COMPARISON: NONE HISTORY: Fourth finger injury with pain. TECHNIQUE: 3 views right fourth finger. FINDINGS: No acute displaced fracture is evident in the right fourth finger. Lateral view slightly [place] boptimal due to osseous overlap. Mild to moderate narrowing in the PIP and DIP joints. No significant spurring. Overlying soft tissue is unremarkable. IMPRESSION: As above.
--- NOTE | 2021-01-04 16:40 | XR ---
EXAMINATION TYPE: XR ribs LT w pa chest xray DATE OF EXAM: 01/04/2021 CLINICAL HISTORY: History of asthma with shortness of breath and cough. Congestion. TECHNIQUE: Single frontal view of the chest is obtained. COMPARISON: Chest x-ray January 13, 2018 FINDINGS: There is no suspicious focal air space opacity, pleural effusion, or pneumothorax seen cur rently. The cardiac silhouette size is stable and within normal limits. The osseous structures are intact. IMPRESSION: No acute pulmonary process.
[2021-01-04 17:12] VITALS: BP 108/72; PULSE 101; RESP 16
== END 2021-01-04 17:23 | disposition home or self-care (01) ==
LOC: EC 15:29
DX: R07.81 Pleurodynia (principal); M79.644 Pain in right finger(s); J44.9 Chronic obstructive pulmonary disease, unspecified; F17.200 Nicotine dependence, unspecified, uncomplicated; E03.9 Hypothyroidism, unspecified; Z79.890 Hormone replacement therapy; Z88.7 Allergy status to serum and vaccine; Z88.8 Allergy status to other drugs, medicaments and biological substances; Z88.6 Allergy status to analgesic agent; W50.0XXA Accidental hit or strike by another person, initial encounter; Y92.009 Unspecified place in unspecified non-institutional (private) residence as the place of occurrence of the external cause
CPT/HCPCS: 99283

== ENCOUNTER → 2022-05-23 | Outpatient (CLI) | payer OTHER ==
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
== END | disposition home or self-care (01) ==
LOC: RADXRMAIN 14:43
PROVIDERS: ATTEND Family Medicine
DX: R06.02 Shortness of breath (principal)
CPT/HCPCS: 71046

== ENCOUNTER 2024-04-10 16:46 | Emergency (ER) | payer OTHER ==
[2024-04-10 16:57] VITALS: BP 96/60; PULSE 85; RESP 20; TEMP 97.7
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
[2024-04-10] MEDS: ORPHENADRINE 30 MG/ML 2 ML VIAL IM STA (17:35)
[2024-04-10] MEDS: CYCLOBENZAPRINE 10MG STARTER 3 TAB BTL PO STA (17:36)
== END 2024-04-10 17:41 | disposition home or self-care (01) ==
LOC: EC 16:46
DX: S46.912A Strain of unspecified muscle, fascia and tendon at shoulder and upper arm level, left arm, initial encounter (principal); F17.200 Nicotine dependence, unspecified, uncomplicated; Z88.7 Allergy status to serum and vaccine; Z88.8 Allergy status to other drugs, medicaments and biological substances; V49.40XA Driver injured in collision with unspecified motor vehicles in traffic accident, initial encounter
CPT/HCPCS: 99283; 96372; J2360

== ENCOUNTER → 2024-05-17 | Outpatient (CLI) | payer OTHER ==
[2024-05-17 12:29] VITALS: BP 109/76; PULSE 84; RESP 19; TEMP 97.6
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
== END ==
LOC: PNWHC3 11:39
PROVIDERS: ATTEND Specialist
DX: M54.12 Radiculopathy, cervical region (principal); F17.210 Nicotine dependence, cigarettes, uncomplicated; Z88.6 Allergy status to analgesic agent; Z88.7 Allergy status to serum and vaccine; Z88.3 Allergy status to other anti-infective agents; Z88.1 Allergy status to other antibiotic agents
CPT/HCPCS: 99212

== ENCOUNTER → 2024-06-09 | Outpatient (CLI) | payer OTHER ==
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
== END | disposition home or self-care (01) ==
LOC: RADMRIMAIN 17:54
PROVIDERS: ATTEND Specialist
DX: M67.814 Other specified disorders of tendon, left shoulder (principal); M75.112 Incomplete rotator cuff tear or rupture of left shoulder, not specified as traumatic; M43.12 Spondylolisthesis, cervical region; M47.22 Other spondylosis with radiculopathy, cervical region; M50.11 Cervical disc disorder with radiculopathy, high cervical region; M19.012 Primary osteoarthritis, left shoulder
CPT/HCPCS: 72141

== ENCOUNTER → 2024-06-28 | Outpatient (CLI) | payer OTHER ==
[2024-06-28 12:51] VITALS: BP 126/82; PULSE 86; RESP 15; TEMP 98.4
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
== END ==
LOC: PNWHC3 12:20
PROVIDERS: ATTEND Specialist
DX: S43.492A Other sprain of left shoulder joint, initial encounter (principal); M43.12 Spondylolisthesis, cervical region; F17.200 Nicotine dependence, unspecified, uncomplicated; Z88.6 Allergy status to analgesic agent; Z88.7 Allergy status to serum and vaccine; Z88.8 Allergy status to other drugs, medicaments and biological substances
CPT/HCPCS: 99212

== ENCOUNTER 2024-07-16 10:14 | Day surgery (SDC) | payer OTHER ==
[2024-07-13 15:17] VITALS: BMI 31.7
[~2024-07-16 10:14] MED LIST: LACTATED RINGERS 1,000 ML IV SCH
[2024-07-16 11:08] VITALS: RESP 16; TEMP 97.2
[2024-07-16] MEDS ORDERED: IOPAMIDOL M200 10 ML VIAL ONE (12:05)
[2024-07-16] MEDS ORDERED: DEXAMETHASONE SOD PHOSPHATE 10 MG/ML 1 ML VIAL ONE (12:05)
--- NOTE | 2024-07-16 12:21 | P.PCN ---
Date of Procedure: 07/16/24 Procedure(s) Performed: PREOPERATIVE DIAGNOSIS: 1-cervical radiculopathy . 2-cervical foraminal stenosis. 3-cervical spondylolisthesis POSTOPERATIVE DIAGNOSIS: Same as preop diagnosis PROCEDURE 1. Transforaminal epidural steroid injection under fluoroscopic guidance at left C5-6 level. (Fluoroscopy images stored on file in the radiology Department ) 2. Cervical epidurogram . ANESTHESIA: Local with 1% lidocaine 3 ml. EBL: Minimal PROCEDURE INDICATION: The patient with low back pain and radiculopathy symptoms unresponsive to conservative treatment. PROCEDURE DESCRIPTION / TECHNIQUE: The patient was seen and identified in the preoperative area. Risks, benefits, complications, and alternatives were discussed with the patient. The patient agreed to proceed with the procedure and signed the consent., and vital signs were stable. Patient was taken to the OR and time out was completed. The patient was placed in the lateral position on procedure table left side up. The cervical area was prepped and draped in the usual sterile fashion. Critical pause was taken. Vital signs were closely monitored during the procedure. Using oblique fluoroscopy, the foramina of left C5-6 level was identified, and the skin and deeper tissues just below was localized with 1% lidocaine. Subsequently, a 23-gauge 3.5-inch spinal needle was advanced under a tunneled view fluoroscopic guidance just in the lower part of C5-6 foraminal under lateral fluoroscopy, the needle was then advanced to the posterior border of the interforaminal space. After negative aspiration of CSF and blood and with no paresthesias, 1 mL Isovue 200 contrast dye was injected excellent epidurogram and outlining of the nerve root Subsequently, 1.5 mL of block solution containing 15 mg Dexamethasone PF was injected. Needle was removed . At the end of the procedure, skin was cleansed, and bandages were applied. COMPLICATIONS:none DISPOSITION / PLANS: The patient was placed in a supine position and transferred to the recovery area in a stable condition for observation. There was no evidence of lower extremity motor or sensory deficit after the procedure. Patient was discharged from the recovery room after meeting discharge criteria. Home discharge instructions were given to the patient by the staff. The patient was reexamined prior to discharge.
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
[2024-07-16 12:39] VITALS: BP 128/74; PULSE 84
== END 2024-07-16 12:52 | disposition home or self-care (01) ==
LOC: ORPAIN 10:14
PROVIDERS: ATTEND Specialist
DX: M48.02 Spinal stenosis, cervical region (principal); M43.12 Spondylolisthesis, cervical region; M54.12 Radiculopathy, cervical region; Z88.6 Allergy status to analgesic agent; Z88.7 Allergy status to serum and vaccine
CPT/HCPCS: 64479; J1100; Q9966

== ENCOUNTER → 2024-09-02 | Outpatient (CLI) | payer OTHER ==
[2024-09-02 15:08] LABS: Basophils # (A) 0.03 X 10*3/uL (0.00-0.10); Basophils % (A) 0.7 %; Eosinophils # (A) 0.05 X 10*3/uL (0.04-0.35); Eosinophils % (A) 1.1 %; HCT 39.7 % (37.2-46.3); Immature Grans, Automated 0 %; Lymphocytes # (A) 1.39 X 10*3/uL (0.90-5.00); Lymphocytes % (A) 31.6 %; MCH 31.3 pg (27.0-32.0); MCHC 32.7 g/dL (32.0-37.0); MCV 95.4 FL (80.0-97.0); Mean Platelet Volume 10.3 FL (9.5-12.2); Monocytes # (A) 0.26 X 10*3/uL (0.20-1.00); Monocytes % (A) 5.9 %; NRBC Per 100 WBC 0 X 10*3/uL (0.00-0.01); Neutrophils # (A) 2.67 X 10*3/uL (1.80-7.70); Neutrophils % (A) 60.7 %; Platelet Count 313 X 10*3/uL (140-440); RBC 4.16 X 10*6/uL (4.10-5.20); RDW 12.4 % (11.5-14.5)
[2024-09-02 15:17] LABS: Anion Gap 13.6 mmol/L (4.00-12.00); Carbon Dioxide 22.4 mmol/L (21.6-31.8); Potassium 4.4 mmol/L (3.5-5.5)
== END | disposition home or self-care (01) ==
LOC: LABPAT 11:10
PROVIDERS: ATTEND Orthopaedic Surgery
DX: Z01.818 Encounter for other preprocedural examination (principal); M75.42 Impingement syndrome of left shoulder; R94.31 Abnormal electrocardiogram [ECG] [EKG]
CPT/HCPCS: 80051; 85025; 93005

== ENCOUNTER 2024-09-08 07:37 | Day surgery (SDC) | payer OTHER ==
[2024-09-06 10:54] VITALS: BMI 31.7
--- NOTE | 2024-09-07 21:00 | HP ---
HISTORY AND PHYSICAL Surgery scheduled for 09/08/2024. HISTORY OF PRESENT ILLNESS: Amparo Rendon is a 59-year-old patient seen with progressive left shoulder pain. We discussed options regarding treatment. She elected to proceed with left shoulder arthroscopy. Consent was obtained. PAST MEDICAL HISTORY: Hypothyroidism and asthma. PAST SURGICAL HISTORY: Hysterectomy and foot surgery. DAILY MEDICATIONS: 1. Hydrocodone. 2. Levothyroxine. 3. Morphine. 4. Xanax. ALLERGIES: Compazine, tetanus, and Toradol. SOCIAL HISTORY: She denies tobacco use. PHYSICAL EVALUATION OF THE LEFT SHOULDER: Flexion is 90 degrees. Abduction is 90 degrees. External rotation is 30 degrees with significant weakness and pain. Tenderness along the anterolateral acromion, acromioclavicular joint, rotator cuff tendon along the biceps tendon. Impingement positive at 90 degrees. Cross-body adduction sign is positive. Distal neurovascular exam intact. IMAGING STUDIES: Radiographs of shoulder revealed a type 2 acromion, acromioclavicular joint osteoarthritis. Left shoulder MRI revealed partial rotator cuff tendon tear. IMPRESSION: 1. Left shoulder impingement with partial rotator cuff tear. 2. Left shoulder labral tear. 3. Left shoulder acromioclavicular joint osteoarthritis. PLAN: Left shoulder arthroscopy with subacromial decompression, arthroscopic rotator cuff repair, Estuardo procedure and debridement of labral tear. MMODL / IJN: [id number] /
[~2024-09-08 07:37] MED LIST changes: -LACTATED RINGERS 1,000 ML IV SCH; +SCOPOLAMINE 1 MG/72 HR PATCH TRANSDERM ONE; +TRANEXAMIC 1,000 MG/100ML-NACL 1,000 MG in SALINE 1 100ML.BAG IVPB PRN
[2024-09-08] MEDS: IV FLUID CONTINUATION 1,000 ML IV ONE ×2 (07:55→13:04)
[2024-09-08] MEDS: ACETAMINOPHEN TAB 500 MG TAB PO PRN (08:32)
[2024-09-08] MEDS: ONDANSETRON 4 MG/2 ML VIAL IVP ONE (08:32)
[2024-09-08] MEDS: MELOXICAM 7.5 MG TAB PO PRN (08:32)
[2024-09-08] MEDS: DEXAMETHASONE SOD PHOSPHATE 4 MG/ML 1 ML VIAL IV ONE (08:33)
[2024-09-08] MEDS: LACTATED RINGERS 1,000 ML IV SCH (08:46)
[2024-09-08] MEDS: MIDAZOLAM 2 MG/2 ML VIAL IV PRN (08:54)
--- NOTE | 2024-09-08 09:07 | P.ANPRN ---
Procedure Note - Anesthesia - Nerve Block Performed Left Interscalene Single Time Out Performed: Yes Date of Procedure: 09/08/24 Procedure Start Time: 08:54 Procedure Stop Time: 08:59 Location of Patient: PreOp Indication: Acute Post-Operative Pain, Analgesia, Requested by Surgeon Sedation Type: Sedate with meaningful contact maintained Preparation: Sterile Prep Position: Sitting Catheter: None Needle Types: Pajunk Needle Gauge: 21 Ultrasound used to visualize needle placement: Yes Ultrasound used to observe medication spread: Yes Injectate: 0.5% Ropivacaine (see comment for volume) ([id number]. Negative nerve stimulation @0.5MA) Blood Aspirated: No Pain Paresthesia on Injection Noted: No Resistance on Injection: Normal Image Stored and Saved: Yes Events: Uneventful and Well Tolerated
[2024-09-08] MEDS ORDERED: DEXAMETHASONE SOD PHOSPHATE 4 MG/ML 1 ML VIAL ONE (09:50)
[2024-09-08] MEDS ORDERED: ROPIVACAINE 5 MG/ML 30 ML VIAL ONE (09:50)
[2024-09-08] MEDS ORDERED: LIDOCAINE 1% INJ 10MG/ML (20 ML MDV) ONE (09:50)
[2024-09-08] MEDS ORDERED: GLYCOPYRROLATE 0.2 MG/ML 2 ML VIAL ONE (09:50)
[2024-09-08] MEDS ORDERED: SUCCINYLCHOLINE CHLORIDE 200 MG/10 ML VIAL IV ONE (09:50)
[2024-09-08] MEDS ORDERED: PROPOFOL 10 MG/ML 20 ML VIAL IV ONE (09:50)
[2024-09-08] MEDS ORDERED: ROCURONIUM 10 MG/ML (5 ML VIAL) IV ONE (09:50)
[2024-09-08] MEDS ORDERED: NEOSTIGMINE 1 MG/ML 10 ML VIAL ONE (09:50)
--- NOTE | 2024-09-08 11:41 | P.OP ---
Date of Procedure: 09/08/24 Preoperative Diagnosis: Left shoulder impingement Postoperative Diagnosis: 1. Left shoulder rotator cuff tear 2. Left shoulder impingement 3. Left shoulder partial long head biceps tendon tear 4. Left shoulder superficial labral tear Procedure(s) Performed: 1. Left shoulder arthroscopic rotator cuff repair 2. Left shoulder arthroscopic subacromial decompression 3. Left shoulder arthroscopic biceps tenodesis 4. Left shoulder arthroscopic debridement superficial labral tear Implants: 1Arthrex 4.75 swivel lock anchor Anesthesia: GETA, regional (Interscalene block) Surgeon: Andrew Swan Spa Director/Finance #1: Amor Brooks Estimated Blood Loss (ml): 10 Pathology: none sent Condition: stable Disposition: PACU Indications for Procedure: 59-year-old patient seen with progressive left shoulder pain. After having rafaela atment options discussed, she elected to proceed with arthroscopy. Operative Findings: See description of procedure Description of Procedure: Patient underwent an interscalene block by department of anesthesia. The patient was then taken to the operative suite. The patient underwent a general anesthetic by the department of anesthesia. The patient was placed into a lateral position and secured. There was appropriate padding of the bony prominence. Left shoulder was then prepped and draped in normal sterile orthopedic fashion. We placed the extremity in 10 pounds of longitudinal traction. A posterior incision was now made for a posterior working portal site. The trocar and cannula were inserted into the glenohumeral joint. Arthroscopy was initiated. Spinal needle was now inserted anteriorly, to ascertain the anterior working portal site. An incision was now made in that area, a trocar was inserted followed by a probe. There was superficial tearing of the anterior labrum. There were some grade I chondromalacia changes of the glenoid. There was partial tearing and hyperemia long head biceps tendon. I introduced a motorized shaver and debrided the superficial labral tear. I now placed a cannula through the anterior portal site. I passed a loop and tack stitch to the biceps tendon and then release it from the superior labral anchor. With the assistance of Joce earl at the interval. The suture line was not passed through the eyelet of an Arthrex 4.75 swivel lock anchor. I placed the eyelet into our prepunched hole. I held in position while Joce NDIAYE tensioned the suture and deployed the anchor with good fixation noted. The residual suture line was clipped. We had a stable biceps tenodesis. The residual labrum was probed and was found to be stable. Instruments were now removed from the glenohumeral joint. Utilizing the posterior working portal site, the trocar and cannula were insert ed into the subacromial space. Arthroscopy initiated. I made an incision 2 fingerbreadths lateral to the acromion. I introduced my trocar followed by my ArthroCare ablator. I now began ablating thick subacromial bursal tissue, which exposed the undersurface of the anterior acromion. There was diminished subacromial space. There was a very prominent anterior acromion. A motorized bur was introduced and a subacromial decompression was performed. I also excised some osteophytes off the inferior aspect of the distal clavicle. The AC joint was visualized and noted to be moderately arthritic, I did not think enough to warrant a Estuardo procedure. I turned my attention to the rotator cuff tendon. There was a tear through the mid substance of the supraspinatus. I debrided the margins getting down to stable tendon tissue. The defect/intrasubstance tear measured about 1.5 cm. With the assistance of Joce NDIAYE past 2 converging sutures through good bites of rotator cuff tendon. I now repaired the tear in a [id number] fashion. The residual suture limbs were clipped. We had a stable intrasubstance tendon repair. Instruments now removed from the portal sites. All portal sites were approximated with nylon suture. Sterile dressings were applied followed by a shoulder sling. Amor NDIAYE assisted in all aspects of this case. The patient was awakened, transferred to a bed, and taken to recovery in stable condition.
[2024-09-08 11:45] VITALS: TEMP 97
[2024-09-08] MEDS: HYDROmorphone 0.5 MG/0.5 ML SYRINGE IVP PRN (12:29)
[2024-09-08 13:22] VITALS: RESP 18
[2024-09-08 13:31] VITALS: BP 119/80; PULSE 102
== END 2024-09-08 13:57 | disposition home or self-care (01) ==
LOC: OR 07:37
PROVIDERS: ATTEND Orthopaedic Surgery
DX: S46.012A Strain of muscle(s) and tendon(s) of the rotator cuff of left shoulder, initial encounter (principal); S43.432A Superior glenoid labrum lesion of left shoulder, initial encounter; G25.81 Restless legs syndrome; J44.89 Other specified chronic obstructive pulmonary disease; E07.9 Disorder of thyroid, unspecified; F41.9 Anxiety disorder, unspecified; F31.30 Bipolar disorder, current episode depressed, mild or moderate severity, unspecified; Z88.6 Allergy status to analgesic agent; Z88.7 Allergy status to serum and vaccine; Z79.51 Long term (current) use of inhaled steroids; Z79.890 Hormone replacement therapy; Z79.899 Other long term (current) drug therapy; X58.XXXA Exposure to other specified factors, initial encounter
CPT/HCPCS: 64415; 29827; 29828; 29826; 29824; C1713 ×2; J2250; J0330; J1100; J2710; J0690; J2405; J2003; J2795; J2704; J1171; J1596